=== PATIENT | female | born 1935 | race Caucasian/White ===

== ENCOUNTER 2021-06-16 12:48 | Emergency (ER) | payer OTHER, MEDICARE ==
[~2021-06-16 12:48] MED LIST: ADALAT CC30 MG PO; CATAPRES-TTS 31 EACH TOP; ELIQUIS2.5 MG PO; HYDRALAZINE HC100 MG PO; MEDROL4 MG PO; VITAMIN D32000 UNI1 PO; ZOCOR20 MG PO; ZYLOPRIM 100 M100 MG PO
== END 2021-06-16 14:05 | disposition home or self-care (01) ==
LOC: ER1 12:48
DX: S66.912A Strain of unspecified muscle, fascia and tendon at wrist and hand level, left hand, initial encounter (principal); S60.512A Abrasion of left hand, initial encounter; I10 Essential (primary) hypertension; V49.40XA Driver injured in collision with unspecified motor vehicles in traffic accident, initial encounter; Y92.410 Unspecified street and highway as the place of occurrence of the external cause
CPT/HCPCS: 73110; 73130; 99283

== ENCOUNTER → 2021-09-08 | Outpatient (CLI) | payer MEDICARE, OTHER | LOC: HEART 5 09:51 | DX: I48.21 Permanent atrial fibrillation (principal); I49.5 Sick sinus syndrome | CPT/HCPCS: 93306 ==

== ENCOUNTER → 2021-11-24 | Outpatient (CLI) | payer MEDICARE, OTHER | LOC: KOH-I 09:56 | DX: N28.1 Cyst of kidney, acquired (principal) | CPT/HCPCS: 76775 ==

== ENCOUNTER → 2022-03-16 | Outpatient (CLI) | payer MEDICARE, OTHER ==
[~2022-03-16] VITALS: Ht 160 cm; Wt 67.1 kg
== END ==
LOC: OPSV 14:00
DX: M81.0 Age-related osteoporosis without current pathological fracture (principal)
CPT/HCPCS: 96372